=== PATIENT | female | born 1995 | race Caucasian/White ===

== ENCOUNTER → 2016-12-19 | Day surgery (SDC) | payer OTHER ==
[~2016-12-19] VITALS: Ht 160 cm; Wt 87.6 kg
[~2016-12-19] MED LIST: HYDROCODON-ACE1 EAC4 PO; IBUPROFEN200 M1 PO; TYLENOL WITH C1 EACH PO
--- NOTE | ~2016-12-19 | OR ---
PATIENT'S NAME: MONIK ALMODOVAR [facility] AGE: 21 Y [address] ROOM: [place] [address] LOCATION: [facility] [place]MIT DATE: 12/19/2016 OR/Procedure Report DISCHARGE DATE: FAMILY PHYSICIAN: Brooke Pradhan APRN ATTENDING PHYSICIAN: Hoda Lee SURGEON: Hoda Lee MD [employer] MACHINE OPERATOR: DATE OF PROCEDURE: 12/19/2016 PREOPERATIVE DIAGNOSIS: Left ureter stone. POSTOPERATIVE DIAGNOSIS: Left ureter stone. PROCEDURE PERFORMED: Cystoscopy, left stent placement. ANESTHESIA: General. COMPLICATIONS: None. INDICATION FOR PROCEDURE: The patient is a 21-year-old female with a 4-mm proximal left ureter stone and also a nonobstructing left renal stone with flank pain and obstruction. DETAILS OF PROCEDURE: After informed consent was obtained, the patient was taken to the operating room. A general anesthetic was applied. She was placed in a dorsal lithotomy position. The groin area was prepped and draped in normal sterile fashion. Cystoscope was introduced into the urethra and bladder without difficulty. The left ureteral orifice was identified and cannulated with a guidewire up into the renal pelvis. Next, a 6-Serbian multi- length ureteral stent was passed over the guidewire up into the renal pelvis. Radiograph imaging showed good position of the stent. The patient tolerated the procedure well and was transferred to recovery room in good condition. MD MONICA STEIN/silvino /[id number] CC: Brooke Pradhan APRN d: 12/19/162052 t: 12/26/16 1020, OPERATIVE SUMMARY
== END | disposition disaster alternative care site (69) ==
LOC: GSDC 10:00 → GPOC 10:00 → EDSTATUS 10:00 → GSDC 11:13
PROC: 0T778DZ Dilation of Left Ureter with Intraluminal Device, Via Natural or Artificial Opening Endoscopic (ICD-10-PCS; principal; 2016-12-19)
DX: N20.2 Calculus of kidney with calculus of ureter (principal); G43.909 Migraine, unspecified, not intractable, without status migrainosus; Z98.890 Other specified postprocedural states; Z91.018 Allergy to other foods
CPT/HCPCS: C1769; J1885; J1956; J3010; J7030

== ENCOUNTER 2016-12-20 16:53 | Emergency (ER) | payer OTHER ==
--- NOTE | ~2016-12-20 | ER ---
PATIENT'S NAME: MONIK ALMODOVAR [facility] AGE: 21 Y [address] ROOM: [place] [address] LOCATION: ED ADMIT DATE: 12/20/2016 ER/Outpatient Report DISCHARGE DATE: 12/20/2016 FAMILY PHYSICIAN: Brooke Pradhan APRN ATTENDING PHYSICIAN: Donna Hooper TIME OF ARRIVAL: 16:56. TIME OF EXAMINATION: 16:56. CHIEF COMPLAINT: Back pain and pain with urination. HISTORY OF PRESENT ILLNESS: The patient states she was seen on Monday, December 18 in [place], and diagnosed with a kidney stone. She spent the night, received fluids, and was sent here on December 19, and saw Dr. Lee, who did do a renal stent for a 4-mm left ureterorenal calculi that was causing blockage. She went home yesterday and drank plenty of fluids. Now, today, she has been having trouble urinating. She states the last time she had a bowel movement was approximately a week ago. She states she has taken four Dulcolax tablets today without any results. She is nauseated and vomited x1. She has had chills. She does have pain with urination and has noted blood with her urine. However, she is currently having her menstrual cycle. ALLERGIES: NO KNOWN ALLERGIES. CURRENT MEDICATIONS: On her chart and reviewed by me. PAST MEDICAL HISTORY: 1. Kidney stone. 2. Right ovarian cyst. PAST SURGERIES: 1. The renal stent done yesterday. 2. Cholecystectomy. SOCIAL HISTORY: She does smoke marijuana on a daily basis. She denies the use of alcohol or tobacco. PATIENT'S NAME: MONIK ALMODOVAR [facility] AGE: 21 Y [address] ROOM: [place] [address] LOCATION: ED ADMIT DATE: 12/20/2016 ER/Outpatient Report DISCHARGE DATE: 12/20/2016 FAMILY PHYSICIAN: Brooke Pradhan APRN ATTENDING PHYSICIAN: Donna Hooper REVIEW OF SYSTEMS: All negative other than those mentioned in the HPI. PHYSICAL EXAMINATION: VITAL SIGNS: She weighs 86 kg. Blood pressure is 134/72, pulse is 55, respirations are 20, temperature is 98.1 tympanic, and O2 saturation was 97% on room air. GENERAL: She is awake, alert, and oriented x4. SKIN: [place], warm, and dry. PULMONARY: Respirations are even and nonlabored. Lung sounds are clear throughout. HEART: Regular rate and rhythm. ABDOMEN: Soft and nondistended. Bowel sounds are present. GENITOURINARY: She was able to urinate upon arrival to the ER and give us a urine sample. EXTREMITIES: She moves all extremities strongly and equally. EMERGENCY ROOM COURSE: Saline lock was initiated. Fluids of normal saline were started. She was given Zofran 4 mg IV and Toradol 30 mg IV. Lab work was drawn. CBC showed a white count of 16.7 and hemoglobin of 12.9 with hematocrit of 37.3. Chem Panel: Sodium is 141, potassium is 3.2, chloride is 107, and lactate was 0.8. Clean-catch UA does show leukocytes and blood, and has a white count of 10 to 20 and negative bacteria. KUB, x-ray was completed. Stent does appear to be in place. It was reviewed with Dr. Hatfield. The patient does appear to have quite a bit of stool throughout the colon. The patient reports that Toradol did help make her feel better. IMPRESSION: 1. Dysuria. 2. Constipation. 3. Recent renal calculi with stent placement. PLAN: Home, rest, and fluids. [place] was written for pain. The patient was given a bottle of magnesium citrate to take home and drink, to try and help with the constipation. She is to contact Dr. Lee in the morning, and follow up with her primary provider within the next one to two days. Her and her mother verbalized understanding. SHASHI CARRASCO APRN FOR DONNA HOOPER DO PATIENT'S NAME: MONIK ALMODOVAR [facility] AGE: 21 Y [address] ROOM: [place], [place] [address] LOCATION: [facility] ADMIT DATE: 12/20/2016 ER/Outpatient Report DISCHARGE DATE: 12/20/2016 FAMILY PHYSICIAN: Brooke Pradhan APRN ATTENDING PHYSICIAN: Donan Hooper/silvino /[id number] d: 12/21/16 0120 t: 12/24/16 0739, OUTPATIENT REPORT
[~2016-12-20 16:53] MED LIST changes: -TYLENOL WITH C1 EACH PO
[2016-12-20 17:11] LABS: BILIRUBIN URINE NEGATIVE (NEGATIVE); BLOOD URINE 250 /UL (NEGATIVE); COLOR URINE RED (YELLOW); GLUCOSE URINE NEGATIVE (NEGATIVE); KETONE URINE NEGATIVE (NEGATIVE); LEUKOCYTES URINE 500 /UL (NEGATIVE); NITRITE URINE NEGATIVE (NEGATIVE); PROTEIN URINE 100 mg/dL (NEGATIVE); SPEC GRAVITY URINE 1.005 (1.003-1.035); TURBIDITY URINE 2+ (CLEAR); UROBILINOGEN URINE NORMAL (NORMAL)
[2016-12-20 17:17] LABS: EPITHELIAL URINE RARE #/HPF (NEGATIVE); RBC URINE 20-50 #/HPF (NEGATIVE)
[2016-12-20 17:18] LABS: BACTERIA URINE NEGATIVE (NEGATIVE)
[2016-12-20 17:21] LABS: BASOPHIL % 0.2 %; EOSINOPHIL % 0.2 %; HEMATOCRIT 37.3 % (33.0-46.0); HEMOGLOBIN 12.9 g/dL (11.0-15.0); IMMATURE GRANULOCYTE # 0.1 K/uL (0.0-0.3); IMMATURE GRANULOCYTE % 0.4 %; LYMPHOCYTE # 2.9 K/uL (0.8-4.0); LYMPHOCYTE % 17.5 %; MCH 30.5 pg (27.0-34.0); MCHC 34.6 gm/dL (32.0-36.5); MCV 88.2 fl (83.0-98.0); MONOCYTE # 1.3 K/uL (0.0-1.0); MONOCYTE % 7.7 %; MPV 10.9 fl (9.4-12.4); NEUTROPHIL # (ANC) 12.4 K/uL (1.8-7.8); NRBC % 0 /100WBC (0-0.00); PLATELET COUNT 303 K/uL (150-450); RBC 4.23 M/uL (3.50-5.00); RDW-CV 12.8 % (11.9-14.6)
[2016-12-20 17:22] LABS: WBC 16.7 K/uL (4.0-11.0)
[2016-12-20 17:41] LABS: ALBUMIN 3.8 gm/dL (3.5-5.0); ALK PHOS 83 IU/L (33-138); ALT 21 IU/L (12-78); ANION GAP 10.2 (10.0-19.0); AST 11 IU/L (10-40); BLOOD UREA NITROGEN 8 mg/dL (6-24); CALCIUM 8.6 mg/dL (8.5-10.5); CHLORIDE 107 mMol/L (96-110); CO2 27 mMol/L (22-32); CREATININE 0.8 mg/dL (0.5-1.1); ESTIMATED GFR (MDRD EQUATION) > 60; POTASSIUM 3.2 mMol/L (3.7-5.1); SODIUM 141 mMol/L (135-145); TOTAL BILIRUBIN 0.4 mg/dL (0.0-1.5)
[2017-01-03] MEDS ORDERED: TYLENOL WITH C1 EACH PO (15:56)
== END 2016-12-20 18:40 | disposition disaster alternative care site (69) ==
LOC: GMED 16:53
PROVIDERS: Emergency Medicine
DX: R30.0 Dysuria (principal); K59.00 Constipation, unspecified; N20.0 Calculus of kidney; Z90.49 Acquired absence of other specified parts of digestive tract; Z96.0 Presence of urogenital implants
CPT/HCPCS: J1885; J2405; J7030

== ENCOUNTER → 2017-01-03 | Day surgery (SDC) | payer OTHER ==
[~2017-01-03] VITALS: Ht 160 cm; Wt 98.3 kg
[~2017-01-03] MED LIST changes: +TYLENOL WITH C1 EACH PO
--- NOTE | ~2017-01-03 | OR ---
PATIENT'S NAME: MONIK ALMODOVAR [facility] AGE: 21 Y [address] ROOM: [place] [address] LOCATION: [facility] [place] ADMIT DATE: 01/03/2017 OR/Procedure Report DISCHARGE DATE: FAMILY PHYSICIAN: Brooke Pradhan APRN ATTENDING PHYSICIAN: Hoda Lee SURGEON: Hoda Lee MD COOKER PIE FILLING: DATE OF PROCEDURE: 01/03/2017 PREOPERATIVE DIAGNOSIS: Left nephrolithiasis. POSTOPERATIVE DIAGNOSIS: Left nephrolithiasis. PROCEDURE PERFORMED: Left ESWL, cystoscopy with stent removal. ANESTHESIA: MAC. COMPLICATIONS: None. INDICATION FOR PROCEDURE: The patient is a 21-year-old female with an approximately 5 mm left renal stone. The patient underwent cystoscopy with stent placement previously and now presents for definitive therapy. DETAILS OF PROCEDURE: After the informed consent was obtained, the patient was taken to the operating room. A MAC anesthetic was applied. She was placed in supine position on the lithotripsy table. Fluoroscopy was then used to target her renal pelvic stone. She received shocks starting at 16 kilovolts and increased to 24 kilovolts. The patient received a total of 2000 shocks with good fragmentation of the stone. The patient then was placed in a frog-leg position and the groin area was prepped and draped in normal sterile fashion. A flexible cystoscope was introduced into the urethra and bladder without difficulty. The stent was identified, engaged with grasping forceps, and removed. The patient tolerated her procedure well and was transferred to the recovery room in good position. MD MONICA STEIN/silvino /[id number] PATIENT'S NAME: MONIK ALMODOVAR [facility] AGE: 21 Y [address] ROOM: [place] [address] LOCATION: [facility] [place] ADMIT DATE: 01/03/2017 OR/Procedure Report DISCHARGE DATE: FAMILY PHYSICIAN: Brooke Pradhan APRN ATTENDING PHYSICIAN: Hoda Lee CC: Brooke Pradhan APRN d: 01/03/17 2242 t: 01/17/1702, OPERATIVE SUMMARY
== END | disposition disaster alternative care site (69) ==
LOC: GSDC 07:00
PROC: 0TF4XZZ Fragmentation in Left Kidney Pelvis, External Approach (ICD-10-PCS; principal; 2017-01-03)
PROC: 0TP98DZ Removal of Intraluminal Device from Ureter, Via Natural or Artificial Opening Endoscopic (ICD-10-PCS; 2017-01-03)
DX: N20.0 Calculus of kidney (principal); G43.909 Migraine, unspecified, not intractable, without status migrainosus; F17.210 Nicotine dependence, cigarettes, uncomplicated; Z90.49 Acquired absence of other specified parts of digestive tract; Z98.890 Other specified postprocedural states; Z91.018 Allergy to other foods
CPT/HCPCS: J1100; J1956; J2001; J2405; J7120